=== PATIENT | male | born 1950 | race African-American/Black ===

== ENCOUNTER 2017-10-30 06:31 | Day surgery (SDC) | payer MEDICARE, OTHER ==
[~2017-10-30] VITALS: Ht 182.9 cm; Wt 75.3 kg
[~2017-10-30 06:31] MED LIST: ASPI-1159 PO; ATOR20TA65 PO; CARV3.1242 PO; CLOP75TA16 PO; FURO-152 PO; HYDR-4001 PO; INSU100I28 SQ; INSU200I SQ; ISOS5TAB4 PO; LISI2.5T47 PO; METF500T6 PO; PROT40 PO; SPIR25TA PO; THIA100T13 PO; XALAO BOTHEYE
[2017-10-30] MEDS ORDERED: PHENYLEPHRINE HCL 10% OPHTH DROPS 5ML RIGHTEYE SCH (06:45)
[2017-10-30] MEDS ORDERED: CYCLOPENTOLATE HCL 1% OPHTH DROPS 2ML RIGHTEYE SCH (06:45)
[2017-10-30] MEDS ORDERED: TROPICAMIDE 1% OPHTH DROPS 15ML RIGHTEYE SCH (06:45)
[2017-10-30] MEDS ORDERED: BALANCED SALT IRRIG SOLN COMB2 500ML OP ONE ×2 (07:00→10:00)
[2017-10-30 08:01] LABS: CHLORIDE 104 mEq/L (98-107); HEMATOCRIT. 33.4 % (42.0-52.0); HEMOGLOBIN. 10.8 g/dL (14.0-18.0); MEAN PLATELET VOLUME 8.3 fl (7.4-10.4); PLATELET 246 x1000/uL (130-400); RED BLOOD CELL COUNT 4.34 mill/uL (4.7-6.1); RED CELL DISTRIBUTION WIDTH 22.9 % (11.6-14.6)
[2017-10-30] MEDS ORDERED: LACTATED RINGERS 1,000 ML IV SCH (08:15)
[2017-10-30] MEDS ORDERED: HYALURONATE SODIUM 14 MG/ML 0.85ML SYRINGE IO ONE ×3 (09:12→10:34)
[2017-10-30] MEDS ORDERED: MIDAZOLAM HCL 2 MG/2 ML VIAL ONE (09:25)
[2017-10-30] MEDS ORDERED: FENTANYL CITRATE/PF 50MCG/ML 2ML VIAL ONE (09:38)
[2017-10-30] MEDS ORDERED: CEFAZOLIN SODIUM 1000MG/VIAL ONE (09:39)
[2017-10-30] MEDS ORDERED: METHYLENE BLUE 50 MG/10 ML AMP IV ONE (09:46)
[2017-10-30] MEDS ORDERED: TRYPAN BLUE 0.5 ML DISP.SYRIN IO ONE (09:47)
[2017-10-30 09:51] LABS: PLATELET ESTIMATE NORMAL
[2017-10-30] MEDS ORDERED: HYDROMORPHONE HCL/PF 2MG/ML CPJ IV PRN (10:45)
[2017-10-30] MEDS ORDERED: ONDANSETRON HCL 4MG/2ML VIAL IV PRN (10:45)
[2017-10-30] MEDS ORDERED: CYCLOPENTOLATE HCL 1% OPHTH DROPS 2ML ONE (11:17)
[2017-10-30] MEDS ORDERED: PHENYLEPHRINE HCL 10% OPHTH DROPS 5ML ONE (11:17)
[2017-10-30] MEDS ORDERED: CIPROFLOXACIN 0.3% OPHTH SOLN 2.5ML ONE (11:17)
[2017-10-30] MEDS ORDERED: PREDNISOLONE ACETATE 1% OPHTH DROPS 1ML ONE (11:17)
[2017-10-30] MEDS ORDERED: TROPICAMIDE 1% OPHTH DROPS 15ML ONE ×2 (11:17)
[2017-10-30] MEDS ORDERED: BUPIVACAINE HCL/PF 0.75% (7.5MG/ML) 10ML ONE (11:17)
[2017-10-30] MEDS ORDERED: ACETYLCHOLINE CHLORIDE INTRAOCULAR SOLUTION 1:100 ELECTROLYTE DILUENT IO ONE (11:17)
[2017-10-30] MEDS ORDERED: TETRACAINE 0.5% OPHTH DROPS 4ML ONE (11:17)
[2017-10-30] MEDS ORDERED: BALANCED SALT IRRIG SOLN 15ML ONE (11:17)
[2017-10-30] MEDS ORDERED: LIDOCAINE HCL/PF 2% 20 MG/ML 10ML VIAL ONE (11:17)
== END 2017-10-30 13:00 | disposition home or self-care (01) ==
LOC: OR 06:31
PROVIDERS: ATTEND Ophthalmology
DX: E11.36 Type 2 diabetes mellitus with diabetic cataract (principal); H25.011 Cortical age-related cataract, right eye; I10 Essential (primary) hypertension; J44.9 Chronic obstructive pulmonary disease, unspecified; E78.5 Hyperlipidemia, unspecified; L97.519 Non-pressure chronic ulcer of other part of right foot with unspecified severity; Z79.4 Long term (current) use of insulin; Z79.82 Long term (current) use of aspirin; Z79.899 Other long term (current) drug therapy; Z88.8 Allergy status to other drugs, medicaments and biological substances; Z79.84 Long term (current) use of oral hypoglycemic drugs; Z87.891 Personal history of nicotine dependence
CPT/HCPCS: 36415; 66984; 80048; 82962; 85025; J0690; J2250; J3010; J3490; Q9957; V2632; Q9968

== ENCOUNTER 2017-12-04 07:22 | Day surgery (SDC) | payer MEDICARE, OTHER ==
[~2017-12-04] VITALS: Ht 182.9 cm; Wt 75.3 kg
[~2017-12-04 07:22] MED LIST changes: +BALANCED SALT IRRIG SOLN COMB1 500ML OP ONE; +CYCLOPENTOLATE HCL 1% OPHTH DROPS 2ML LEFTEYE SCH; +PHENYLEPHRINE HCL 10% OPHTH DROPS 5ML LEFTEYE SCH; +TROPICAMIDE 1% OPHTH DROPS 15ML LEFTEYE SCH
[2017-12-04 08:28] LABS: EOSINOPHILS % 2.3 % (0.0-5.0); HEMATOCRIT. 31.3 % (42.0-52.0); HEMOGLOBIN. 10.4 g/dL (14.0-18.0); LYMPHOCYTES % 20.2 % (20.0-50.0); MEAN CORPUSCULAR HEMOGLOBIN 27.1 pg (28.0-32.0); MEAN CORPUSCULAR VOLUME 81.6 fL (80.0-94.0); MEAN PLATELET VOLUME 7.9 fl (7.4-10.4); MONOCYTES % 11.4 % (2.0-8.0); NEUTROPHILS % 65.1 % (40.0-76.0); PLATELET 278 x1000/uL (130-400); RED BLOOD CELL COUNT 3.84 mill/uL (4.7-6.1); RED CELL DISTRIBUTION WIDTH 22.9 % (11.6-14.6)
[2017-12-04 08:47] LABS: CHLORIDE 108 mEq/L (98-107)
[2017-12-04] MEDS ORDERED: HYALURONATE SODIUM 14 MG/ML 0.85ML SYRINGE IO ONE (08:47)
[2017-12-04] MEDS ORDERED: MIDAZOLAM HCL 5 MG/5 ML VIAL ONE (09:04)
[2017-12-04] MEDS ORDERED: SODIUM CHLORIDE 0.9% 1,000 ML IV ONE (09:12)
[2017-12-04] MEDS ORDERED: ONDANSETRON HCL 4MG/2ML VIAL IV PRN (09:15)
[2017-12-04] MEDS ORDERED: IBUPROFEN 600MG TABLET PO NR (09:15)
[2017-12-04] MEDS ORDERED: HYDROMORPHONE HCL/PF 2MG/ML CPJ IV PRN (09:15)
[2017-12-04 09:29] LABS: PLATELET ESTIMATE NORMAL
[2017-12-04] MEDS ORDERED: BALANCED SALT IRRIG SOLN 15ML ONE (14:58)
[2017-12-04] MEDS ORDERED: TETRACAINE 0.5% OPHTH DROPS 4ML ONE (14:58)
[2017-12-04] MEDS ORDERED: CYCLOPENTOLATE HCL 1% OPHTH DROPS 2ML ONE (14:58)
[2017-12-04] MEDS ORDERED: NEO/POLYMYX B SULF/DEXAMETH OPHTH OINT 3.5GM ONE (14:58)
[2017-12-04] MEDS ORDERED: LIDOCAINE HCL/PF 2% 20 MG/ML 10ML VIAL ONE (14:58)
[2017-12-04] MEDS ORDERED: BUPIVACAINE HCL/PF 0.75% (7.5MG/ML) 10ML ONE (14:58)
[2017-12-04] MEDS ORDERED: PHENYLEPHRINE HCL 2.5% OPHTH DROPS 2ML ONE (14:58)
[2017-12-04] MEDS ORDERED: OFLOXACIN 0.3% OPHTH SOLN 5ML ONE (14:58)
[2017-12-04] MEDS ORDERED: ACETYLCHOLINE CHLORIDE INTRAOCULAR SOLUTION 1:100 ELECTROLYTE DILUENT IO ONE (14:58)
[2017-12-04] MEDS ORDERED: PREDNISOLONE ACETATE 1% OPHTH DROPS 1ML ONE (14:58)
[2017-12-04] MEDS ORDERED: PHENYLEPHRINE HCL 10% OPHTH DROPS 5ML ONE (14:58)
[2017-12-04] MEDS ORDERED: LIDOCAINE HCL 2%/EPINEPHRINE 1:100,000 20 ML VIAL INFIL ONE (14:58)
== END 2017-12-04 13:30 | disposition home or self-care (01) ==
LOC: OR 07:22
PROVIDERS: ATTEND Ophthalmology
DX: H25.012 Cortical age-related cataract, left eye (principal); Z82.49 Family history of ischemic heart disease and other diseases of the circulatory system; Z79.82 Long term (current) use of aspirin; Z79.4 Long term (current) use of insulin; Z88.8 Allergy status to other drugs, medicaments and biological substances; J44.9 Chronic obstructive pulmonary disease, unspecified; I10 Essential (primary) hypertension; E78.5 Hyperlipidemia, unspecified; Z79.899 Other long term (current) drug therapy; Z79.84 Long term (current) use of oral hypoglycemic drugs; E11.9 Type 2 diabetes mellitus without complications; Z87.891 Personal history of nicotine dependence; L97.519 Non-pressure chronic ulcer of other part of right foot with unspecified severity
CPT/HCPCS: 36415; 66984; 80048; 82962; 85025; 93005; J2250; J3490; J7030; V2632